=== PATIENT | male | born 1980 | race Caucasian/White ===

== ENCOUNTER 2024-05-14 15:52 | Emergency (ER) | payer OTHER, SELFPAY ==
--- NOTE | ~2024-05-14 | XR_ITS ---
EXAMINATION: XR finger 2nd LT min 2V DATE: 05/14/2024 16:17 INDICATION: Smashing injury with laceration to the left second distal phalanx TECHNIQUE: Dorsal palmar, lateral and 2 oblique views of the left second digit were obtained COMPARISON: None FINDINGS: Sagittal oriented fracture plane along the ulnar side of the tuft of the left second digit with <1 mm separation along the fracture plane. There is surrounding soft tissue swelling with skin laceration at the ulnar side of the distal phalanx suggesting this could represent an open/compound fracture at increased risk of infection particularly if there is injury to the nail bed. No other fractures ident ified. 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 No ra diopaque foreign bodies. IMPRESSION: 1. Minimally displaced fracture of the ulnar side of the tuft of the left second distal phalanx, pote ntially open/compound within the overlying soft tissue laceration. Reviewed, dictated and finalized at location A. IMPRESSION: 1. Minimally displaced fracture of the ulnar side of the tuft of the left secon d distal phalanx, potentially open/compound within the overlying soft tissue la ceration.
--- NOTE | ~2024-05-14 | XR_ITS ---
EXAMINATION: XR wrist LT min 3V DATE: 05/14/2024 16:16 INDICATION: Ulnar-sided left wrist pain post fall from horse 5 days prior TECHNIQUE: Posteroanterior, ulnar deviation, oblique, and lateral views of the left wrist were obtain ed. COMPARISON: none FINDINGS: Alignment is normal. No fracture. 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 No erosions. Soft tissues are unremarkable. IMPRESSION: 1. 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 No acute osseous abnormali ty. Reviewed, dictated and finalized at location A. IMPRESSION: 1. 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 No a cute osseous abnormality.
[2024-05-14 16:04] VITALS: BP 125/77; PULSE 78; RESP 16; TEMP 37; O2SAT 100
--- NOTE | 2024-05-14 16:09 | ED.GENADULT ---
HPI - General Adult General Chief complaint: Wound/Laceration Stated complaint: Injured Finger Left Hand Source: patient Mode of arrival: ambulatory Limitations: no limitations History of Present Illness HPI narrative: 44 y/o male presented for c/o laceration, pain and swelling to the left index finger (distal phalanx) after Pt struck the digit with a sledgehammer, injury sustained about one hour prior to arrival. Unsure of last tetanus. No treatment prior to arrival. Pt also reports left wrist pain after injury sustained a few days ago when he fell off of a horse. No treatment at that time, states he would like it looked at. Denies swelling, bruising, deformity, numbness, tingling or weakness. Related Data Home Medications Medication Instructions Recorded Confirmed multivitamin 1 tablet PO DAILY 01/16/23 05/14/24 amlodipine 10 mg tablet 10 mg PO DAILY 05/14/24 05/14/24 atorvastatin 10 mg tablet 10 mg PO DAILY 05/14/24 05/14/24 losartan 50 mg tablet 50 mg PO DAILY 05/14/24 05/14/24 venlafaxine 37.5 mg mg PO 05/14/24 capsule,extended release 24 hr Allergies Allergy/AdvReac Type Severity Reaction Status Date / Time No Known Allergies Allergy Verified 05/14/24 16:46 Review of Systems Review of Systems: CONSTITUTIONAL: Denies fever, chills CARDIOVASCULAR: Denies chest pain, palpitations, or edema. RESPIRATORY: Denies cough or dyspnea. GASTROINTESTINAL: Denies abdominal pain, nausea, vomiting, or diarrhea. SKIN: Reports wound left index finger MUSCULOSKELETAL: Denies back pain, joint pain, or myalgia. NEUROLOGIC: Denies headache All systems reviewed & are unremarkable except as noted in HPI and below PMFSH Past Medical History Medical History Allergies HTN (hypertension) Family History Family History Mother Hypertension Sibling Diabetes mellitus Grandparent Hypertension Cerebrovascular accident Stomach cancer Social History Social History Smoking status: Never smoker Alcohol intake: never Substance use: never Lack of Transportation: No Lack of Food: Never True Current Housing: I Have Housing Concerned About Future Housing: No Difficulty Paying Gas/Electric Bills: No Difficulty Paying for Meds: No Currently Unemployed: No Education: Bachelor's Degree Difficulty w/ Childcare or Family Care: No Living arrangements: with family Occupation/Education: occupation Gender identity (if verbalized by the patient): Male Comments At time of signature, I have reviewed and agree with nursing past medical, surgical, social and family history unless otherwise noted. Please see nursing chart for further information. There is no relevant family history pertinent to the presenting complaint Exam Narrative: GENERAL: Well-appearing. CHEST: Speaks in full sentences. No respiratory distress. HEART: Regular rate and rhythm. Normal and equal peripheral pulses. EXTREMITIES: Left 2nd digit with 1cm superficial laceration distal to the DIP. 1cm linear laceration to ulnar aspect of the distal phalanx, moderate swelling, no apparent bone fragment identified. Limited ROM at DIP due to pain, swelling. No nail involvement. pulse palpable and equal bilaterally, SKIN: Warm, dry, Capillary refill less than 3 seconds. NEURO: Alert and oriented x3. PSYCH: Normal mood and affect Course Course Emergency Course: Patient is aware of diagnosis, understands and agrees to treatment plan. Anticipatory guidance given. Patient agrees to follow-up as directed and is aware of reasons to seek care at the emergency department. Portions of this record may have been created with voice recognition software Level of Care: Express Care Visit Vital Signs Vital signs: Vital Signs Temperature 98.6 F 05/14/24 16:04 Pulse
[2024-05-14] MEDS: TETANUS,DIPHTHERIA,AC PERTUSSIS ADULT (0.5 ML) BOOSTRIX IM (17:00)
== END 2024-05-14 17:00 | disposition short-term general hospital (02) ==
PROVIDERS: Emergency Provider Nurse Practitioner Family; PCP Internal Medicine
DX: S62.631B Displaced fracture of distal phalanx of left index finger, initial encounter for open fracture (principal); W27.8XXA Contact with other nonpowered hand tool, initial encounter; Z23 Encounter for immunization; M25.532 Pain in left wrist; I10 Essential (primary) hypertension
CPT/HCPCS: 73110; 73140; 90471; 90715; 99213; G0463